=== PATIENT | female | born 1995 | race Hispanic/Latino ===

== ENCOUNTER 2018-05-13 12:58 | Emergency (ER) | payer BC ==
[2018-05-13 13:42] LABS: Absolute Lymphocytes (CBC) 2.2 K/uL (0.7-4.9); Absolute Monocytes 0.6 K/uL (0.1-1.3); Absolute Neutrophil 6.9 K/uL (1.8-8.0); Basophils % 0.3 % (0-1.3); Eosinophils % 1.1 % (0-4.4); Hematocrit 39.5 % (36.0-45.0); Lymphocytes % 22.3 % (15.3-44.8); MPV 9.3 fL (7.6-11.3); Monocytes % 5.9 % (3.3-12.3); RBC Red Blood Cell Count 4.31 M/uL (3.86-4.86)
--- NOTE | 2018-05-13 13:50 | RAD REPORT ---
EXAM DESCRIPTION: US - Transvaginal OB - 05/13/2018 1:43 pm CLINICAL HISTORY: ABD CRAMPING, COMPARISON: No comparisons FINDINGS: A single gestational sac is seen within the uterus. The shape of the sac is within normal limits for gestational age. Within the sac is a single pole with crown-rump length of 2 mm, cor relating to estimated gestational age of 5 weeks 5 days. Estimated date of delivery is 01/08/2019. Heart rate is 91 BPM. The placenta is not yet developed due to early gestational age. The maternal adnexa and ovaries are within normal limits. Normal Doppler blood flow was demonstrated to both ovaries. 6 x 5 mm subchorionic bleed is present inferiorly. IMPRESSION: Single live early intrauterine gestation with estimated gestational age of 5 weeks 5 day s, REY 01/08/2019. Small inferior subchorionic bleed (6 x 5 mm).
[2018-05-13 13:58] LABS: BUN Blood Urea Nitrogen 10 mg/dL (7-18); Bicarbonate 27 mmol/L (21-32); Glucose Level 89 mg/dL (74-106); Potassium 3.8 mmol/L (3.5-5.1); Sodium Level 138 mmol/L (136-145)
[2018-05-13] MEDS ORDERED: NA CHLORIDE 0.9% 1,000 ML ONE (14:04)
[2018-05-13 14:21] LABS: HCG, Quantitative 25871 mIU/mL (1-3)
--- NOTE | 2018-05-13 15:43 | EDPHYS ---
Physician Documentation [facility] Name: Kaitlynn Miranda Age: 22 yrs Sex: Female : 1995 Arrival Date: 05/13/2018 Time: 13:01 Bed 25 Private MD: None, None ED Physician Yon Pete HPI: 05/13 13:56 This 22 yrs old Female presents to ER via Ambulatory with complaints of ivelisse Vaginal Bleeding. 13:56 The patient presents with vaginal bleeding that is moderate. Onset: The ivelisse symptoms/episode began/occurred 2 day(s) ago. Modifying factors: The symptoms are alleviated by nothing. Associated signs and symptoms: The patient has no apparent associated signs or symptoms. Severity of symptoms: At their worst the symptoms were mild, in the emergency department the symptoms are unchanged. The patient is sexually active. BIOCHEMIST: 13:03 2, Full Term 0, Premature 0, 1, Living 0, LMP 04/02/2018 sv 13:56 2, Full Term 0, Premature 0, 1, Living 0 ivelisse Historical: - Allergies: 13:03 No Known Allergies; sv - PMHx: 13:03 None; sv - PSHx: 13:03 None; sv - Immunization history:: Flu vaccine is not up to date. - Social history:: Smoking status: Patient/guardian denies using tobacco. - Ebola Screening: : No symptoms or risks identified at this time. - Family history:: not pertinent. ROS: 13:56 Constitutional: Negative for fever, chills, and weight loss, Eyes: Negative for injury, ivelisse pain, redness, and discharge, ENT: Negative for injury, pain, and discharge, Neck: Negative for injury, pain, and swelling, Cardiovascular: Negative for chest pain, palpitations, and edema, Respiratory: Negative for shortness of breath, cough, wheezing, and pleuritic chest pain, Abdomen/GI: Negative for abdominal pain, nausea, vomiting, diarrhea, and constipation, Back: Negative for injury and pain, MS/Extremity: Negative for injury and deformity, Skin: Negative for injury, rash, and discoloration, Neuro: Negative for headache, weakness, numbness, tingling, and seizure, Psych: Negative for depression, anxiety, suicide ideation, homicidal ideation, and hallucinations, Allergy/Immunology: Negative for hives, rash, and allergies, Endocrine: Negative for neck swelling, polydipsia, polyuria, polyphagia, and marked weight changes, Hematologic/Lymphatic: Negative for swollen nodes, abnormal bleeding, and unusual bruising. 13:56 : Positive for pelvic pain, vaginal bleeding. Exam: 13:56 Constitutional: This is a well developed, well nourished patient who is awake, alert, ivelisse and in no acute distress. Head/Face: Normocephalic, atraumatic. Eyes: Pupils equal round and reactive to light, extra-ocular motions intact. Lids and lashes normal. Conjunctiva and sclera are non-icteric and not injected. Cornea within normal limits. Periorbital areas with no swelling, redness, or edema. ENT: Nares patent. No nasal discharge, no septal abnormalities noted. Tympanic membranes are normal and external auditory canals are clear. Oropharynx with no redness, swelling, or masses, exudates, or evidence of obstruction, uvula midline. Mucous membranes moist. Neck: Trachea midline, no thyromegaly or masses palpated, and no cervical lymphadenopathy. Supple, full range of motion without nuchal rigidity, or vertebral point tenderness. No Meningismus. Chest/axilla: Normal chest wall appearance and motion. Nontender with no deformity. No lesions are appreciated. Cardiovascular: Regular rate and rhythm with a normal S1 and S2. No gallops, murmurs, or rubs. Normal PMI, no JVD. No pulse deficits. Respiratory: Lungs have equal breath sounds bilaterally, clear to auscultation and percussion. No rales, rhonchi or wheezes noted. No increased work of breathing, no retractions or nasal flaring. Abdomen/GI: Soft, non-tender, with normal bowel sounds. No distension or tympany. No guarding or rebound. No evidence of tenderness throughout. Back: No spinal tenderness. No costovertebral tenderness. Full range of motion. Skin: Warm, dry with normal turgor. Normal color with no rashes, no lesions, and no evidence of cellulitis. MS/ Extremity: Pulses equal, no cyanosis. Neurovascular intact. Full, normal range of motion. Neuro: Awake and alert, GCS 15, oriented to person, place, time, and situation. Cranial nerves II-XII grossly intact. Motor strength 5/5 in all extremities. Sensory grossly intact. Cerebellar exam normal. Normal gait. Psych: Awake, alert, with orientation to person, place and time. Behavior, mood, and affect are within normal limits. Vital Signs: 13:03 BP 117 / 72; Pulse 77; Resp 16; Temp 98; Pulse Ox 99% ; Weight 58.51 kg; Height 4 ft. sv 11 in. (149.86 cm); Pain 5/10; 14:00 BP 111 / 68; Pulse 88; Resp 16; Temp 98.6; Pulse Ox 99% ; ls4 15:04 BP 114 / 70; Pulse 72; Resp 16; Pulse Ox 99% on R/A; Pain 0/10; ls4 13:03 Body Mass Index 26.05 (58.51 kg, 149.86 cm) sv MDM: 13:07 Patient medically screened. [facility] 13:58 Data reviewed: vital signs, nurses notes, lab test result(s), radiologic studies, ivelisse ultrasound. 05/13 13:10 Order name: Quantitative Hcg; Complete Time: 15:41 [facility] 05/13 13:10 Order name: Abo/rh Typing; Complete Time: 15:41 [facility] 05/13 13:10 Order name: Basic Metabolic Panel; Complete Time: 15:41 [facility] 05/13 13:10 Order name: CBC with Diff; Complete Time: 13:58 [facility] 05/13 13:10 Order name: US Transvaginal Ob; Complete Time: 13:58 [facility] 05/13 13:10 Order name: Urine Culture [facility] 05/13 13:10 Order name: Urine Test (obtain specimen); Complete Time: 13:29 [facility] 05/13 13:10 Order name: IV Saline Lock; Complete Time: 13:29 [facility] 05/13 13:10 Order name: Labs collected and sent; Complete Time: 13:29 [facility] 05/13 13:10 Order name: NPO; Complete Time: 13:29 [facility] 05/13 13:10 Order name: Urine Dipstick-Ancillary (obtain specimen); Complete Time: 13:29 [facility] Administered Medications: 13:49 Drug: NS 0.9% 1000 ml Route: IV; Rate: 1 bolus; Site: right antecubital; ls4 14:49 Follow up: IV Status: Completed infusion; IV Intake: 1000ml ls4 Disposition: 05/13/18 15:42 Discharged to Home. Impression: Threatened . - Condition is Fair. - Discharge Instructions: Threatened Miscarriage, Vaginal Bleeding During , First Trimester, First Trimester of , [id number], Subchorionic Hematoma, First Trimester of , Threatened Miscarriage, [id number], Pelvic Rest. - Prescriptions for Vitamin 27- 0.8 mg Oral Tablet - take 1 tablet by ORAL route once daily; 30 tablet. - Medication Reconciliation Form, Thank You Letter, Antibiotic Education, Prescription Opioid Use form. - Follow up: Private Physician; When: 2 - 3 days; Reason: Recheck today's complaints, Continuance of care, Re-evaluation by your physician. Follow up: Mini Rekhi; When: 2 - 3 days; Reason: Recheck today's complaints, Continuance of care, Re-evaluation by your physician. - Problem is new. - Symptoms have improved. Signatures: Dispatcher [employer] Kiah Glez RN RN Yon Donnelly MD MD cha Barber, Rebecca RN RN rb1 Alma Rosa Walsh RN RN ls4 Corrections: (The following items were deleted from the chart) 16:11 15:42 05/13/2018 15:42 Discharged to Home. Impression: Threatened . Condition rb1 is Fair. Discharge Instructions: Threatened Miscarriage, Vaginal Bleeding During , First Trimester, First Trimester of , [id number], First Trimester of , Threatened Miscarriage, [id number]-[id number], Pelvic Rest. Prescriptions for Vitamin 27-0.8 mg Oral Tablet - take 1 tablet by ORAL route once daily; 30 tablet. and Forms are Medication Reconciliation Form, Thank You Letter, Antibiotic Education, Prescription Opioid Use. Follow up: Private Physician; When: 2 - 3 days; Reason: Recheck today's complaints, Continuance of care, Re-evaluation by your physician. Follow up: Mini Rekhi; When: 2 - 3 days; Reason: Recheck today's complaints, Continuance of care, Re-evaluation by your physician. Problem is new. Symptoms have improved. ivelisse
--- NOTE | 2018-05-13 15:43 | ER ---
Nurse's Notes [facility] Name: Kaitlynn Miranda Age: 22 yrs Sex: Female : 1995 Arrival Date: 05/13/2018 Time: 13:01 Bed 25 Private MD: None, None Diagnosis: Threatened Presentation: 05/13 13:02 Presenting complaint: Patient states: light pink vaginal bleeding started this morning. sv c/o back pain and abd cramping. Reports being 6 wks . Transition of care: patient was not received from another setting of care. Onset of symptoms was May 13, 2018 at 09:00. Care prior to arrival: None. 13:02 Method Of Arrival: Ambulatory sv 13:02 Acuity: MARY 3 sv 14:03 Risk Assessment: Do you want to hurt yourself or someone else? Patient reports no ls4 desire to harm self or others. Initial Sepsis Screen: Does the patient meet any 2 criteria? No. Patient's initial sepsis screen is negative. Does the patient have a suspected source of infection? No. Patient's initial sepsis screen is negative. Triage Assessment: 14:02 General: Behavior is calm, cooperative. Neuro: No deficits noted. Respiratory: No ls4 deficits noted. GI: No deficits noted. : Urine is clear. DIRECTOR SYSTEMS: 13:03 2, Full Term 0, Premature 0, 1, Living 0, LMP 04/02/2018 sv 13:56 2, Full Term 0, Premature 0, 1, Living 0 ivelisse Historical: - Allergies: 13:03 No Known Allergies; sv - PMHx: 13:03 None; sv - PSHx: 13:03 None; sv - Immunization history:: Flu vaccine is not up to date. - Social history:: Smoking status: Patient/guardian denies using tobacco. - Ebola Screening: : No symptoms or risks identified at this time. - Family history:: not pertinent. Screenin:01 Abuse screen: Denies threats or abuse. Denies injuries from another. Nutritional ls4 screening: No deficits noted. Tuberculosis screening: No symptoms or risk factors identified. Fall Risk None identified. Assessment: 13:00 General: Appears in no apparent distress. ls4 13:00 Pain: Denies pain. Neuro: No deficits noted. Cardiovascular: No deficits noted. ls4 Respiratory: No deficits noted. GI: No deficits noted. : No deficits noted. Urine is clear, Reports vaginal bleeding that is pink on tissue. Musculoskeletal: No deficits noted. 13:59 Reassessment: Patient and/or family updated on plan of care and expected duration. Pain ls4 level reassessed. Patient is alert, oriented x 3, equal unlabored respirations, skin warm/dry/pink. Vital Signs: 13:03 BP 117 / 72; Pulse 77; Resp 16; Temp 98; Pulse Ox 99% ; Weight 58.51 kg; Height 4 ft. sv 11 in. (149.86 cm); Pain 5/10; 14:00 BP 111 / 68; Pulse 88; Resp 16; Temp 98.6; Pulse Ox 99% ; ls4 15:04 BP 114 / 70; Pulse 72; Resp 16; Pulse Ox 99% on R/A; Pain 0/10; ls4 13:03 Body Mass Index 26.05 (58.51 kg, 149.86 cm) sv ED Course: 13:01 Patient arrived in ED. dl4 13:01 None, None is Private Physician. dl4 13:03 Triage completed. sv 13:04 Arm band placed on. sv 13:07 Yon Pete MD is Attending Physician. ivelisse 13:08 No provider procedures requiring assistance completed. Inserted saline lock: 20 gauge ls4 in right antecubital area, using aseptic technique. Blood collected. 13:16 Alma Rosa Walsh, RN is Primary Nurse. ls4 13:43 Ultrasound completed. Patient tolerated well. Patient moved back from ultrasound. aa4 13:44 US Transvaginal Ob In Process Unspecified. EDMS 14:03 Patient has correct armband on for positive identification. Placed in gown. Bed in low ls4 position. Side rails up X 1. Pulse ox on. NIBP on. 15:42 Dilia Burton MD is Referral Physician. ivelisse 16:09 IV discontinued, intact, bleeding controlled, No redness/swelling at site. Pressure rb1 dressing applied. Administered Medications: 13:49 Drug: NS 0.9% 1000 ml Route: IV; Rate: 1 bolus; Site: right antecubital; ls4 14:49 Follow up: IV Status: Completed infusion; IV Intake: 1000ml ls4 Intake: 14:49 IV: 1000ml; Total: 1000ml. ls4 Outcome: 15:09 Condition: stable ls4 15:42 Discharge ordered by . ivelisse 16:11 Patient left the ED. rb1 16:12 Discharged to home ambulatory, with family. ls4 16:12 Discharge instructions given to patient, friend, Instructed on discharge instructions, follow up and referral plans. Signatures: Dispatcher [employer] Kiah Glez RN RN Yon Donnelly MD MD cha Frazier, Amanda aa4 Barber, Rebecca, RN RN rb1 Alma Rosa Walsh RN RN ls4 Dino Matthew dl4
== END 2018-05-13 16:11 | disposition home or self-care (01) ==
LOC: ER 12:58
DX: O20.0 Threatened abortion (principal); Z3A.01 Less than 8 weeks gestation of pregnancy
CPT/HCPCS: 36415; 76817; 80048; 84702; 85025; 86900; 86901; 87086; 87088; J7030

== ENCOUNTER 2018-07-25 13:42 | Emergency (ER) | payer BC, OTHER ==
--- OUTSIDE RECORDS SUMMARY | 2018-07-25 13:44 | XMS REPORT ---
:1995 [facility] Address [address] [place] [address] [address] [place] [address] Care Team Providers Name Role Phone Unavailable Unavailable Unavailable Problems This patient has no known problems. Allergies, Adverse Reactions, Alerts This patient has no known allergies or adverse reactions. Medications This patient has no known medications.
[2018-07-25 14:44] LABS: Absolute Lymphocytes (CBC) 1.6 K/uL (0.7-4.9); Absolute Monocytes 0.4 K/uL (0.1-1.3); Absolute Neutrophil 8.9 K/uL (1.8-8.0); Basophils % 0.4 % (0-1.3); Eosinophils % 0.4 % (0-4.4); Hematocrit 36.6 % (36.0-45.0); Lymphocytes % 14.3 % (15.3-44.8); MPV 10.2 fL (7.6-11.3); RBC Red Blood Cell Count 3.99 M/uL (3.86-4.86)
--- NOTE | 2018-07-25 14:55 | RAD REPORT ---
EXAM DESCRIPTION: US - Transvaginal OB - 07/25/2018 2:35 pm CLINICAL HISTORY: , bleeding COMPARISON: May 13, 2018 FINDINGS: Limited examination was performed. A single intrauterine gestation is identified measured at 16 weeks 1 day age. Calculated REY is 01/08/2019. Heart rate is 136 BPM. No gross anatomic abnorma lity seen. Anatomic assessment is limited. No abruption or marginal hematoma of the posteriorly positioned placenta. Small amount of blood is se en in the cervical canal. A small 18 mm echogenic focus is present anterior margin cervical canal. Th is may be a small old hematoma or chorionic bump. Long-term significance of this finding is doubtful. IMPRESSION: A single 16 week 1 day gestation is identified. Heart rate is 136 BPM. There is a small amount of fluid or blood in the cervical canal. No large mass or hematoma within the uterus.
[2018-07-25 15:19] LABS: BUN Blood Urea Nitrogen 9 mg/dL (7-18); Bicarbonate 25 mmol/L (21-32); Glucose Level 102 mg/dL (74-106); HCG, Quantitative 28129 mIU/mL (1-3); Potassium 3.7 mmol/L (3.5-5.1); Sodium Level 139 mmol/L (136-145)
[2018-07-25 15:26] LABS: Urine Blood NEGATIVE (NEG); Urine Glucose NEGATIVE (NEG); Urine Protein NEGATIVE (NEG); Urine pH 7.5 (5.0-7.0)
[2018-07-25 15:48] LABS: Urine Amorphous Sediment 3+ /HPF (NONE SEEN); Urine Bacteria <20 /HPF (<20); Urine Culture Reflex Order NOT NEEDED; Urine Mucus 2+ /HPF (NONE SEEN); Urine RBC <5 /HPF (NONE SEEN)
--- NOTE | 2018-07-25 16:14 | EDPHYS ---
Physician Documentation [facility] Name: Kaitlynn Miranda Age: 23 yrs Sex: Female : 1995 Arrival Date: 07/25/2018 Time: 13:50 Bed 15 Private MD: ED Physician Landon Kaur HPI: 07/25 14:07 This 23 yrs old Female presents to ER via Ambulatory with complaints of rn Vaginal Bleeding, + Preg <12wks. 14:07 The patient presents to the emergency department with vaginal bleeding, that is light, rn with no clots. The estimated gestational age is 16 weeks. course: care: private OB physician, Leakage of Fluid: none appreciated, Ultrasound: the patient had an ultrasound, Risk/complications: no obvious risks or complications are appreciated. Previous pregnancies: in previous pregnancies patient has had. The patient has experienced a previous episode. The patient has been recently seen by a physician:. at approx 16 weeks presents with vaginal bleeding, spotting, did have sex 2 days ago, no abd pain. No urinary symptoms. Reports other ended in miscarriage. . VISUAL MERCHANDISING COORDINATOR: 13:54 2, Full Term 0, Premature 0, 1, Living 0, LMP 04/02/2018 aa5 Historical: - Allergies: 13:54 No Known Allergies; aa5 - PMHx: 13:54 None; aa5 - PSHx: 13:54 None; aa5 - Immunization history:: Flu vaccine is up to date. - Social history:: Smoking status: Patient/guardian denies using tobacco. - Ebola Screening: : No symptoms or risks identified at this time. - Family history:: not pertinent. - Hospitalizations: : No recent hospitalization is reported. ROS: 14:07 Constitutional: Negative for fever, chills, and weight loss, Eyes: Negative for injury, rn pain, redness, and discharge, Neck: Negative for injury, pain, and swelling, Cardiovascular: Negative for chest pain, palpitations, and edema, Respiratory: Negative for shortness of breath, cough, wheezing, and pleuritic chest pain, Abdomen/GI: Negative for abdominal pain, nausea, vomiting, diarrhea, and constipation, Back: Negative for injury and pain, : + vaginal bleeding MS/Extremity: Negative for injury and deformity, Skin: Negative for injury, rash, and discoloration, Neuro: Negative for headache, weakness, numbness, tingling, and seizure. Exam: 14:07 Constitutional: This is a well developed, well nourished patient who is awake, alert, rn and in no acute distress. Head/Face: Normocephalic, atraumatic. ENT: MMM Respiratory: No increased work of breathing, no retractions or nasal flaring. Abdomen/GI: soft, non-tender, fundal height at or just below umbilicus Skin: Warm, dry MS/ Extremity: Pulses equal, no cyanosis. Neurovascular intact. Full, normal range of motion. Equal circumference. Neuro: Awake and alert, GCS 15, oriented to person, place, time, and situation. Cranial nerves II-XII grossly intact. Motor strength 5/5 in all extremities. Sensory grossly intact. Vital Signs: 13:54 BP 104 / 71; Pulse 85; Resp 16 S; Temp 98.6(TE); Pulse Ox 99% on R/A; Weight 60.33 kg aa5 (R); Height 4 ft. 10 in. (147.32 cm) (R); Pain 3/10; 16:27 BP 139 / 78 LA; Pulse 75; Resp 17 S; Pulse Ox 100% on R/A; rv 13:54 Body Mass Index 27.80 (60.33 kg, 147.32 cm) aa5 MDM: 14:02 Patient medically screened. rn 16:11 Differential diagnosis: Data reviewed: vital signs, nurses notes, lab test result(s), rn radiologic studies, ultrasound, and as a result, I will discharge patient. Counseling: I had a detailed discussion with the patient and/or guardian regarding: the historical points, exam findings, and any diagnostic results supporting the discharge/admit diagnosis, lab results, radiology results, the need for outpatient follow up, to return to the emergency department if symptoms worsen or persist or if there are any questions or concerns that arise at home. Special discussion: I discussed with the patient/guardian in detail that at this point there is no indication for admission to the hospital. It is understood, however, that if the symptoms persist or worsen the patient needs to return immediately for re-evaluation. Based on the history and exam findings, there is no indication for further emergent testing or inpatient evaluation. I discussed with the patient/guardian the need to see the OB Gyne specialist for further evaluation of the symptoms. 07/25 14:02 Order name: Quantitative Hcg; Complete Time: 15:28 rn 07/25 14:02 Order name: Abo/rh Typing; Complete Time: 15:16 rn 07/25 14:02 Order name: Basic Metabolic Panel; Complete Time: 15:28 rn 07/25 14:02 Order name: CBC with Diff; Complete Time: 15:16 rn 07/25 14:27 Order name: Urine Dipstick--Ancillary (enter results); Complete Time: 15:28 eb 07/25 14:27 Order name: Urine --Ancillary (enter results); Complete Time: 15:28 eb 07/25 14:02 Order name: NPO; Complete Time: 14:30 rn 07/25 14:02 Order name: Urine Test (obtain specimen); Complete Time: 14:31 rn 07/25 14:02 Order name: IV Saline Lock; Complete Time: 14:31 rn 07/25 14:02 Order name: Labs collected and sent; Complete Time: 14:31 rn 07/25 14:02 Order name: Urine Dipstick-Ancillary (obtain specimen); Complete Time: 14:33 rn 07/25 14:02 Order name: US Transvaginal Ob; Complete Time: 14:56 rn 07/25 15:21 Order name: Urine Microscopic Only; Complete Time: 16:10 eb Administered Medications: No medications were administered Point of Care Testing: Urine : 14:31 hCG Reading: Positive; Control Reading: Positive; rv Disposition: 07/25/18 16:13 Discharged to Home. Impression: Threatened . - Condition is Stable. - Discharge Instructions: Threatened Miscarriage. - Medication Reconciliation Form, Thank You Letter, Antibiotic Education, Prescription Opioid Use form. - Follow up: Private Physician; When: As needed; Reason: Recheck today's complaints, Re-evaluation by your physician. - Problem is new. - Symptoms have improved. Signatures: Dispatcher [employer] EDMS Landon Kaur MD MD rn Calderon, Audri RN RN aa5 Scottie Valle RN RN rv Corrections: (The following items were deleted from the chart) 16:26 16:13 07/25/2018 16:13 Discharged to Home. Impression: Threatened . Condition rv is Stable. Forms are Medication Reconciliation Form, Thank You Letter, Antibiotic Education, Prescription Opioid Use. Follow up: Private Physician; When: As needed; Reason: Recheck today's complaints, Re-evaluation by your physician. Problem is new. Symptoms have improved. rn
--- NOTE | 2018-07-25 16:14 | ER ---
Nurse's Notes [facility] Name: Kaitlynn Miranda Age: 23 yrs Sex: Female : 1995 Arrival Date: 07/25/2018 Time: 13:50 Bed 15 Private MD: Diagnosis: Threatened Presentation: 07/25 13:53 Presenting complaint: Patient states: vaginal bleeding that began as spotting yesterday aa5 and today it's bright red blood today. Pt reports mild lower abd pain. Reports being 16 weeks . Transition of care: patient was not received from another setting of care. Onset of symptoms was July 2018. Risk Assessment: Do you want to hurt yourself or someone else? Patient reports no desire to harm self or others. Initial Sepsis Screen: Does the patient meet any 2 criteria? No. Patient's initial sepsis screen is negative. Does the patient have a suspected source of infection? No. Patient's initial sepsis screen is negative. Care prior to arrival: None. 13:53 Method Of Arrival: Ambulatory aa5 13:53 Acuity: MARY 3 aa5 RECOVERY RN: 13:54 2, Full Term 0, Premature 0, 1, Living 0, LMP 04/02/2018 aa5 Historical: - Allergies: 13:54 No Known Allergies; aa5 - PMHx: 13:54 None; aa5 - PSHx: 13:54 None; aa5 - Immunization history:: Flu vaccine is up to date. - Social history:: Smoking status: Patient/guardian denies using tobacco. - Ebola Screening: : No symptoms or risks identified at this time. - Family history:: not pertinent. - Hospitalizations: : No recent hospitalization is reported. Screenin:06 Abuse screen: Denies threats or abuse. Denies injuries from another. Nutritional rv screening: No deficits noted. Tuberculosis screening: No symptoms or risk factors identified. Fall Risk None identified. Assessment: 14:05 General: Appears in no apparent distress. comfortable, Behavior is calm, cooperative. rv Pain: Complains of pain in abdomen. Neuro: Level of Consciousness is awake, alert, obeys commands, Oriented to person, place, time, situation. Cardiovascular: Capillary refill < 3 seconds. Respiratory: Airway is patent. GI: No signs and/or symptoms were reported involving the gastrointestinal system. : Reports vaginal bleeding that is bright red. EENT: No signs and/or symptoms were reported regarding the EENT system. Derm: Skin is intact. Musculoskeletal: No signs and/or symptoms reported regarding the musculoskeletal system. 14:31 Obstetrical Assessment: General assessment: awake and alert, respirations even and rv unlabored, Patient reports Abdominal pain, presence of movement. 16:25 Reassessment: Patient appears in no apparent distress at this time. Patient and/or rv family updated on plan of care and expected duration. Pain level reassessed. Patient is alert, oriented x 3, equal unlabored respirations, skin warm/dry/pink. Vital Signs: 13:54 BP 104 / 71; Pulse 85; Resp 16 S; Temp 98.6(TE); Pulse Ox 99% on R/A; Weight 60.33 kg aa5 (R); Height 4 ft. 10 in. (147.32 cm) (R); Pain 3/10; 16:27 BP 139 / 78 LA; Pulse 75; Resp 17 S; Pulse Ox 100% on R/A; rv 13:54 Body Mass Index 27.80 (60.33 kg, 147.32 cm) aa5 Vitals: 14:32 Heart Tones 160s LLQ. rv ED Course: 13:50 Patient arrived in ED. rg4 13:52 Arm band placed on. aa5 13:54 Triage completed. aa5 14:02 Landon Kaur MD is Attending Physician. rn 14:05 Scottie Valle RN is Primary Nurse. rv 14:07 Patient has correct armband on for positive identification. Placed in gown. Bed in low rv position. Call light in reach. Side rails up X 1. Pulse ox on. NIBP on. 14:15 Inserted saline lock: 20 gauge in right antecubital area, using aseptic technique. rv Blood collected. 14:31 US Transvaginal Ob Sent. rv 14:31 Urine --Ancillary (enter results) Sent. rv 14:31 Urine Dipstick--Ancillary (enter results) Sent. rv 14:31 Quantitative Hcg Sent. rv 14:31 Abo/rh Typing Sent. rv 14:31 Basic Metabolic Panel Sent. rv 14:31 CBC with Diff Sent. rv 14:36 US Transvaginal Ob In Process Unspecified. EDMS 16:25 No provider procedures requiring assistance completed. IV discontinued, bleeding rv controlled, No redness/swelling at site. Pressure dressing applied. Administered Medications: No medications were administered Point of Care Testing: Urine : 14:31 hCG Reading: Positive; Control Reading: Positive; rv Outcome: 16:13 Discharge ordered by . rn 16:25 Discharged to home ambulatory. rv 16:25 Condition: good 16:25 Discharge instructions given to patient, family, Instructed on discharge instructions, follow up and referral plans. Demonstrated understanding of instructions, follow-up care. 16:26 Patient left the ED. rv Signatures: Dispatcher [employer] EDMS Landon Kaur MD MD rn Calderon, Audri, RN RN lou5 Zahraa Monroy 4 Scottie Valle RN RN rv
== END 2018-07-25 16:26 | disposition home or self-care (01) ==
LOC: ER 13:42
DX: O20.0 Threatened abortion (principal); Z3A.16 16 weeks gestation of pregnancy
CPT/HCPCS: 36415; 76817; 80048; 81003; 81015; 81025; 84702; 85025; 86900; 86901; 99284